=== PATIENT | male | born 1990 | race Caucasian/White ===

== ENCOUNTER 2023-04-25 03:30 | Emergency (ER) | payer OTHER, SELFPAY ==
[2023-04-25 03:31] VITALS: BP 155/114; PULSE 116; RESP 18; TEMP 37; O2SAT 98; BMI 43.7
[2023-04-25 03:48] LABS: Basophils Absolute Auto 0.1 X10*3/uL (0.0-0.2); Basophils Percent Auto 0.5 % (0-2); Eosinophils Absolute Auto 0.3 X10*3/uL (0.0-0.4); Eosinophils Percent Auto 2.7 % (0-4); Hematocrit 43.8 % (42.0-52.0); Hemoglobin 15.3 g/dl (14.0-18.0); Imm Gran Abs Auto 0.05 X10*3/uL (0.00-0.03); Imm Gran Pct Auto 0.5 % (0.0-0.4); Lymphocytes Absolute Auto 2.4 X10*3/uL (1.2-4.9); Lymphocytes Percent Auto 24.3 % (20-40); MANUAL DIFF FLAG NO; Mean Corpuscular HGB Conc 34.9 g/dl (31.0-36.0); Mean Corpuscular Hemoglobin 30.2 pg (27.0-33.0); Mean Corpuscular Volume 86.4 fL (80.0-98.0); Mean Platelet Volume 10.5 fL (9.4-12.4); Monocytes Absolute Auto 0.7 X10*3/uL (0.1-1.2); Monocytes Percent Auto 7.5 % (2-11); Neutrophils Absolute Auto 6.2 x10*3/uL (2.0-8.3); Neutrophils Percent Auto 64.5 % (45-73); Platelet Count 271 X10*3/uL (160-400); Red Blood Count 5.07 X10*6/uL (4.60-5.80); Red Cell Distribution Width 12.3 % (11.0-16.0); White Blood Count 9.7 X10*3/uL (4.8-10.8)
[2023-04-25 03:53] LABS: Appearance Urine Clear; Color Urine Dark Yellow; Glucose Urine UA Negative (Negative); Leukocyte Esterase Urine Negative (Negative); Nitrite Urine Negative (Negative); PH 5.5 (5.0-9.0); Specific Gravity - Urine >= 1.030 (1.005-1.025); Urine Blood Negative (Negative); Urine Ketones Trace mg/dL (Negative); Urine Protein Trace mg/dL (Neg-Trace)
[2023-04-25 04:01] LABS: Bacteria Urine None Seen (None Seen); RBC Urine 0-2 /HPF (0-2); Squamous Epithelial Cell Urine 0-2 /HPF (0-2); WBC Urine 0-5 /HPF (0-5)
[2023-04-25 04:04] LABS: Alanine Aminotransferase 55 U/L (0-40); Albumin Level 4.5 g/dL (3.5-5.0); Alkaline Phosphatase 79 U/L (39-117); Anion Gap 14 (12-20); Aspartate Amino Transferase 31 U/L (5-37); Bilirubin Direct 0.1 mg/dL (0.0-0.5); Bilirubin Total 0.5 mg/dL (0.0-1.0); Blood Urea Nitrogen 18 mg/dL (9-16); Calcium 9.6 mg/dL (8.4-10.2); Carbon Dioxide 22 mmol/L (22-29); Chloride 105 mmol/L (96-108); Creatinine Clr Calc Pharmacy 164.7; Estimated Glomerular Filt Rate > 60; Glucose Random 119 mg/dL (60-115); Lipase 23 U/L (8-78); Potassium 4.1 mmol/L (3.3-5.1); Sodium 137 mmol/L (135-145); Total Protein 7.8 g/dL (6.5-8.0)
--- NOTE | 2023-04-25 04:16 | ED_ITS ---
HPI - Abdominal Pain General Chief Complaint: Abdominal Pain Stated Complaint: possible gallstone Time Seen by Provider: 04/25/23 04:16 Source: patient Mode of arrival: ambulatory Limitations: no limitations History of Present Illness HPI narrative: Patient has chronic upper abdominal pain been to [facility] endoscopy was negative last year also had ultrasound which was also negative for gallstones patient does get pain off and on no nausea or vomiting today patient has heavy dinner at 18:00 and started having pain in few hours after the food with nausea or vomiting patient also complaining of constipation had hemorrhoids and had small amount of bright red blood per rectum when he tried to move his bowel no urinary complaints Related Data Allergies Allergy/AdvReac Type Severity Reaction Status Date / Time No Known Allergies Allergy Verified 04/25/23 03:34 Review of Systems Review of Systems Yes all other systems are reviewed and are negative [facility] Social History Social History Alcohol intake: current Alcohol intake frequency: a few times a week Physical Exam ED Vital Signs: Vital Signs - 24 hr 04/25/23 03:31 Temperature 98.6 F Pulse Rate 116 H Respiratory Rate 18 Blood Pressure 155/114 H Pulse Oximetry 98 Oxygen Delivery Method Room Air BMI result Body Mass Index 43.7 Appearance: Alert. Oriented X3. No acute distress. Obese Eyes: PERRLA, No Nystagmus no pallor or icterus ENT: Pharynx normal. Oral Mucosa moist Neck: Normal inspection. Neck supple. CVS: Normal heart rate and rhythm. Pulses normal. Respiratory: No respiratory distress. Equal air entry bilateral, no wheezing/rales/rhonchi Abdomen: Soft mild deep tenderness in the epigastric area Jhonson sign negative. Bowel sounds are present, no mass palpable, no CVA tenderness Skin: Skin warm and dry. Normal skin color. Normal skin turgor. Extremities: No lower extremity edema. No calf tenderness Neuro: Oriented X 3. Medical Decision Making Medical Decision Making [facility] Narrative: Patient with chronic upper abdominal pain with GI workup negative in the past advised to follow with [facility] minimal take Prilosec for pain and avoid fried food Differential Diagnosis Differential Diagnoses: The differential diagnosis associated with the presentation includes Gastritis/pancreatitis/gallstone/cholecystitis Lab Data [facility] Lab Attestation statement: I reviewed the patient's lab results. 04/25/23 03:43 04/25/23 03:43 Labs: Lab Results 04/25/23 04/25/23 Range/Units 03:43 03:47 WBC 9.7 (4.8-10.8) X10*3/uL RBC 5.07 (4.60-5.80) X10*6/uL Hgb 15.3 (14.0-18.0) g/dl Hct 43.8 (42.0-52.0) % MCV 86.4 (80.0-98.0) fL MCH 30.2 (27.0-33.0) pg MCHC 34.9 (31.0-36.0) g/dl RDW 12.3 (11.0-16.0) % Plt Count 271 (160-400) X10*3/uL MPV 10.5 (9.4-12.4) fL Immature Gran % (Auto) 0.5 H (0.0-0.4) % Neut % (Auto) 64.5 (45-73) % Lymph % (Auto) 24.3 (20-40) % [place] % (Auto) 7.5 (2-11) % Eos % (Auto) 2.7 (0-4) % Baso % (Auto) 0.5 (0-2) % Lymph # (Auto) 2.4 (1.2-4.9) X10*3/uL [place] # (Auto) 0.7 (0.1-1.2) X10*3/uL Eos # (Auto) 0.3 (0.0-0.4) X10*3/uL Baso # (Auto) 0.1 (0.0-0.2) X10*3/uL Abs Immat Gran (auto) 0.05 H (0.00-0.03) X10*3/uL Absolute Neuts (auto) 6.2 (2.0-8.3) x10*3/uL Absolute Nucleated RBC 0.000 (0.0-0.012) X10*3/uL Nucleated RBC % (auto) 0.0 (0.0-0.2) /100WBC Sodium 137 (135-145) mmol/L Potassium 4.1 (3.3-5.1) mmol/L Chloride 105 (96-108) mmol/L Carbon Dioxide 22 (22-29) mmol/L Anion Gap 14 (12-20) BUN 18 H (9-16) mg/dL Creatinine 1.03 (0.5-1.4) mg/dL Estim Creat Clear Calc 164.7 Estimated GFR > 60 Random Glucose 119 H (60-115) mg/dL Calcium 9.6 (8.4-10.2) mg/dL Total Bilirubin 0.5 (0.0-1.0) mg/dL Direct Bilirubin 0.1 (0.0-0.5) mg/dL AST 31 (5-37) U/L ALT 55 H (0-40) U/L Alkaline Phosphatase 79 (39-117) U/L Total Protein 7.8 (6.5-8.0) g/dL Albumin 4.5 (3.5-5.0) g/dL Lipase 23 (8-78) U/L Urine Color Dark Yellow Urine Appearance Clear Urine pH 5.5 (5.0-9.0) Ur Specific [place] >= 1.030 H (1.005-1.025) Urine Protein Trace (Neg-Trace) mg/dL Urine Glucose (UA) Negative (Negative) mg/dL Urine Ketones Trace (Negative) mg/dL Urine Blood Negative (Negative) Urine Nitrite Negative (Negative) Ur Leukocyte Esterase Negative (Negative) Urine RBC 0-2 (0-2) /HPF Urine WBC 0-5 (0-5) /HPF Ur Squamous Epith Cells 0-2 (0-2) /HPF Urine Bacteria None Seen (None Seen) Hyaline Casts 11-20 (0-2) /LPF Discharge Plan Discharge Clinical Impression: Abdominal pain Patient Disposition: Home, Self-Care Instructions: Chronic Abdominal Pain (ED) Additional Instructions: Cause of abdominal pain is not clear likely chronic gastritis Follow-up with gastroenterology for further workup including CT scan and endoscopy Take Prilosec 40 mg daily Have Tums Avoid fried food Referrals: Guerrero Jefferson MD [Physician] - 2 weeks
--- NOTE | 2023-04-25 04:30 | PC.NURSE ---
provider at bedside preforming ultrasound.
[2023-04-25 04:45] VITALS: BP 143/87; PULSE 97; RESP 18; TEMP 36.8; O2SAT 95
[2023-04-25] MEDS: Dicyclomine HCl 10 MG CAPSULE 20 MG PO (04:59)
--- NOTE | 2023-04-25 05:07 | PC.NURSE ---
pt from home reporting onset of of right upper quadrant pain. pt reports hx of this pain for multiple years but reports this pain was severe. pt abdomen soft non tender to touch. pt denies n/v/d. pt reports constipation for one week and reports when he gets this pain he becomes constipated.
== END 2023-04-25 05:11 | disposition home or self-care (01) ==
PROVIDERS: Emergency Provider Internal Medicine
DX: R10.10 Upper abdominal pain, unspecified (principal)
CPT/HCPCS: 36415; 80053; 81001; 82248; 83690; 85025; 99283; 99284

== ENCOUNTER 2023-09-01 11:02 | Emergency (ER) | payer SELFPAY ==
[2023-09-01 11:14] VITALS: BP 145/105; PULSE 84; RESP 16; TEMP 36.6; O2SAT 100; BMI 33.7
--- NOTE | 2023-09-01 11:18 | ED_ITS ---
HPI - Eye Problem General Chief complaint: Eye Problems Stated complaint: fb l eye work related Time Seen by Provider: 09/01/23 11:15 Source: patient Mode of arrival: ambulatory Limitations: no limitations History of Present Illness HPI Narrative: Patient is a 32-year-old male presenting to the emergency department with complaint of left eye irritation. States that he was driving today with the window rolled down and felt something go into his left eye. States that he attempted to flush but still feels foreign body sensation. He does not wear contacts or glasses. Denies any blurred vision or other visual changes. Denies any pain, describes only as mild irritation. He denies any headache or nausea. chief complaint: eye redness and foreign body Onset (ago): hour(s) Onset description: sudden Duration: constant Location: left eye Eye Symptoms: redness and foreign body sensation Place: street/outdoors Severity: mild Associated symptoms: none Treatments Prior to Arrival: irrigated eye Related Data Previous Rx's ?Medication ?Instructions ?Recorded erythromycin 5 mg/gram (0.5 %) eye 1 appl ophthalmic-Left TID 3 days 09/01/23 ointment #3.5 grams Allergies Allergy/AdvReac Type Severity Reaction Status Date / Time No Known Allergies Allergy Verified 09/01/23 11:16 Review of Systems Review of Systems: As per HPI. Yes all other systems are reviewed and are negative Constitutional: Constitutional: Reports as per HPI [facility] Social History Social History Alcohol intake: current Alcohol intake frequency: a few times a week Advance Directives: No Do you have a plan to hurt others: No Plan Physical Exam 2 Vital Signs: Vital Signs: Last Vital Signs Temp 97.9 F 09/01/23 11:14 Pulse 84 09/01/23 11:14 Resp 16 09/01/23 11:14 BP 145/105 H 09/01/23 11:14 Pulse Ox 100 09/01/23 11:14 O2 Del Method Room Air 09/01/23 11:14 BMI result Body Mass Index 33.7 Vital signs have been reviewed and appear to be correct. Blood pressure elevated. Heart rate normal. Respiratory rate normal. Temperature normal. Oxygen saturation normal. Const: General: cooperative, healthy appearing and no acute distress Orientation/consciousness: oriented to person, oriented to place, oriented to time and patient oriented x3 Limitations: no limitations HEENT: Head: Yes normocephalic and Yes atraumatic Ears: external ears normal General nose exam: Normal external nose present Face and sinus: Yes face symmetric Mouth: oropharynx normal and moist mucous membranes Throat: Yes uvula midline Eyes: Periorbital: periorbital findings normal Eyelids: Yes eyelids normal Conjunctivae: conjunctival abnormal left conjunctival injection diffuse Sclerae: sclerae normal Corneas: corneas normal and fluorescein used Pupils: Equal, round and reactive pupils present and Pupil accommodation reflex normal Neck: Neck: Yes normal visual inspection and Yes supple Resp: Effort & Inspection: normal respiratory effort and able to speak in complete sentences Auscultation: clear to auscultation bilaterally Cardio: Rate: regular rate Rhythm: regular rhythm Heart sounds: S1 normal heart sound present and S2 normal heart sound present Skin: General skin exam: elasticity normal and turgor normal Neuro: General: oriented to person, oriented to place, oriented to time, patient oriented x3, moves all extremities, no focal motor deficits and CN's II- XI intact bilaterally Cranial nerves: Yes Equal, round and reactive pupils present Cognition (Neuro): normal cognition Extrem: General: Yes full ROM, Yes no pedal edema and Yes no calf tenderness Psych: Mental Status: mental status grossly normal Affect: normal affect Thought process: Normal thought process present Medications Administered Discontinued Medications Generic Name Dose Route Start Last Admin Trade Name Freq PRN Reason Stop Dose Admin Fluorescein Sodium 1 strip 09/01/23 11:15 09/01/23 11:31 Fluorescein Sodium Strip EYE-LEFT 09/01/23 11:16 1 strip ONCE ONE Administration Tetracaine HCl 1 drop 09/01/23 11:15 09/01/23 11:31 Tetracaine Hcl 0.5% Oph Norma 5 Ml Drops EYE-LEFT 09/01/23 11:16 1 drop ONCE ONE Administration Medical Decision Making Medical Decision Making [facility] Narrative: Patient is a 32-year-old male presenting to the emergency department with complaint of left eye irritation. On exam patient is awake, A+Ox3, BP elevated, VS otherwise WNL, afebrile, normal neurological exam without focal deficits, physical exam findings as above. Given reported symptoms and physical exam findings, initial differential includes corneal abrasion, foreign body, conjunctivitis. Wood's lamp exam with fluorescein shows no evidence of corneal abrasion, no visible foreign body noted. Visual acuity normal. Will treat patient with short course of erythromycin ointment for lubrication and comfort. Instructed patient to follow-up with PCP regarding elevated blood pressure reading in the emergency department today. Do not suspect acute angle closure glaucoma. Will refer to Dr. Silva for any ongoing symptoms. Return precautions discussed at bedside. Patient verbalized understanding of and agreement with plan. Differential Diagnosis Differential Diagnoses: The differential diagnosis associated with the presentation includes As per MDM. External Record Review External record reviewed: Inpatient record, Office record and Outpatient record Prescription Management I considered prescription management with: Antibiotic Discharge Plan Discharge Clinical Impression: Irritation of left eye Patient Disposition: Home, Self-Care Instructions: Eye Pain (ED) Additional Instructions: You were evaluated in the emergency department today for left eye irritation. Your exam did not show evidence of any abrasion to your cornea or foreign body in your eye. You are being prescribed erythromycin ointment for lubrication and to prevent infection. Please use this medication as prescribed. 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 Return to the emergency department if you develop any blurred vision, double vision or other changes in vision, increased pain, discharge or drainage from eye or any other concerning symptoms. Prescriptions: New erythromycin 5 mg/gram (0.5 %) ointment 1 appl ophthalmic-Left TID 3 Days Qty: 3.5 0RF Referrals: Ash Silva [Physician] - Print Language: Estonian
[2023-09-01] MEDS: Tetracaine HCl 0.5% Oph Sol 5 ML DROPS 1 DROP EYE-LEFT (11:31)
[2023-09-01] MEDS: Fluorescein Sodium STRIP 1 STRIP EYE-LEFT (11:31)
--- NOTE | 2023-09-01 12:06 | PC.NURSE ---
visual acuity done and charted
[2023-09-01 12:10] VITALS: BP 145/105; PULSE 84; RESP 16; TEMP 36.6; O2SAT 100
== END 2023-09-01 12:10 | disposition home or self-care (01) ==
PROVIDERS: Emergency Provider Emergency Medicine; PCP Internal Medicine
DX: H57.12 Ocular pain, left eye (principal)
CPT/HCPCS: 99282; 99283